=== PATIENT | female | born 1935 | race Hispanic/Latino ===

== ENCOUNTER → 2020-02-24 | Outpatient (CLI) | payer MEDICARE ==
[~2020-02-24] MED LIST: CRESTOR10 MG PO; LISINOPRIL5 MG PO; METFORMIN HCL500 MG PO; REGADENOSON 0.4 MG/5 ML SYR IV ONE
== END ==
LOC: NM 09:55
PROVIDERS: ATTEND Internal Medicine Cardiovascular Disease
DX: R07.9 Chest pain, unspecified (principal)
CPT/HCPCS: 78452; 93017; 93306; A9502; J2785

== ENCOUNTER → 2023-09-24 | Outpatient (REF) | payer MEDICARE ==
[~2023-09-24] MED LIST changes: -REGADENOSON 0.4 MG/5 ML SYR IV ONE
== END ==
LOC: US 10:50
PROVIDERS: ATTEND Nurse Practitioner Family
DX: E03.9 Hypothyroidism, unspecified (principal)
CPT/HCPCS: 10005; 88112; 88172; 88173; 88305

== ENCOUNTER 2024-10-25 00:39 | Emergency (ER) | payer MEDICARE ==
[~2024-10-25] VITALS: Ht 157.5 cm; Wt 79.8 kg
[2024-10-25] MEDS: ACETAMINOPHEN 325 MG TAB PO ONE (01:31)
[2024-10-25 01:33] LABS: BASOPHILS % 0.5 % (0.0-1.0); EOSINOPHILS % 2.6 % (0.0-6.0); LYMPHOCYTES % 37.1 % (18.0-39.1); MONOCYTES % 7.5 % (4.4-11.3); NEUTROPHILS % 52.2 % (38.7-80.0); RED CELL DISTRIBUTION WIDTH 14.5 % (11.7-14.4)
[2024-10-25 02:02] LABS: EST GLOMERULAR FILTRATION RATE 33.0 ML/MIN (>=60)
[2024-10-25 04:34] VITALS: PULSE 55; RESP 18; TEMP 98.4; O2SAT 99
== END 2024-10-25 04:42 | disposition home or self-care (01) ==
LOC: ER 01:10
DX: R51.9 Headache, unspecified (principal); I10 Essential (primary) hypertension; R42 Dizziness and giddiness; E11.9 Type 2 diabetes mellitus without complications; E78.5 Hyperlipidemia, unspecified; E03.9 Hypothyroidism, unspecified
CPT/HCPCS: 36415; 70450; 80053; 82550; 84484; 85025; 93005; 99284